=== PATIENT | female | born 1955 | race Caucasian/White ===

== ENCOUNTER → 2023-11-24 14:56 | Outpatient (REF) | payer MEDICARE, SELFPAY ==
[2023-11-24 16:03] LABS: C-Reactive Protein < 5.00 mg/L (0.0-10.00)
== END ==
LOC: REG 14:56
PROVIDERS: ATTENDING PHYSICIAN Orthopaedic Surgery
DX: Z96.651 Presence of right artificial knee joint (principal)
CPT/HCPCS: 36415; 86140

== ENCOUNTER 2023-11-27 06:23 | Inpatient (IN) | payer MEDICARE, SELFPAY ==
--- NOTE | 2023-10-31 09:05 | CM ---
Addendum entered by Cynthia Fang 11/19/23 09:40:
Spoke again patient. She will go directly to outpatient PT and has scheduled an appointment for 11/30.
Addendum entered by Cynthia Fang 11/19/23 08:27:
Spoke again with patient. She is requesting VN services initially as she feels it will be more convenient. Discussed benefits of outpatient PT and she states that she will discuss with her significant other. Patient to follow up with navigator.
Original Note:
Patient is scheduled for a R TK Revision on 11/27/23. Spoke with patient prior to surgery via telephone. Introduced role of Orthopedic Navigator. Patient reports that she lives with her significant other in a two story home. There are two steps to
enter and a flight of steps to the second floor. There is a first floor bedroom and full bath. She currently functions independently. She has a cane and rolling walker. She has never had VN services. PCP is Brionna Be.
Discussed orthopedic program and post surgical plans. Reviewed anticipated length of stay and that goal is for her to return home at discharge. Also reviewed outpatient PT. Patient is in agreement with tentative plan and will go directly to
outpatient PT at [facility]. She will have support from her significant other when she goes home.
Patient will complete online education.
Plan: Orthopedic Navigator will remain available to assist with the care of patient and will reassess discharge needs after surgery.
[2023-11-06 14:11] VITALS: BMI 28.8
[2023-11-06 14:25] LABS: Hematocrit 40.5 % (37.0-47.0); Hemoglobin 13.8 g/dL (12.0-16.0); Mean Corp Hgb Conc. 34.1 g/dL (33.0-37.0); Mean Corpuscular Hgb 28.3 pg (27.0-31.0); Mean Corpuscular Volume 83.2 fL (81.0-99.0); Mean Platelet Volume 9.6 fL (7.4-10.4); Platelet Count 296 10^3/uL (130-400); Red Blood Cell Count 4.87 10^6/uL (4.20-5.40); Red Cell Dist. Width 12.7 % (11.5-14.5); White Blood Cell Count 5.2 10^3/uL (4.8-10.8)
[2023-11-06 14:43] LABS: ALT (SGPT) 23 U/L (0-35); AST (SGOT) 23 U/L (14-36); Alkaline Phosphatase 115 U/L (38-126); Blood Urea Nitrogen 22 mg/dl (7-17); Calcium 9.6 mg/dl (8.4-10.2); Carbon Dioxide 29 mmol/L (22-30); Chloride 105 mmol/L (98-107); Estimated Creatinine Clearance 67 ml/min; Glucose 113 mg/dl (70-99); Potassium 4.4 mmol/L (3.5-5.1); Sodium 139 mmol/L (135-145); Total Bilirubin 0.8 mg/dl (0.2-1.3); Total Protein 6.9 g/dl (6.3-8.2); eGFR > 60.00
[2023-11-06 15:34] LABS: Erythrocyte Sed Rate 17 mm/hour (0-20)
[2023-11-06 15:55] VITALS: BMI 28.8
[2023-11-07 09:18] LABS: Glycohemoglobin (HgbA1c) 5.7 % (4.0-5.6)
[2023-11-27] VITALS (12 sets, daily range): BP systolic 99–147; BP diastolic 45–84; BMI 28.8
--- NOTE | 2023-11-27 11:10 | W.PN.UPDATE ---
Update Note
Progress Note Update
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
- s/p R TKA, 2019, and L TKA, 2018, by Dr Garcia
DVT prophylaxis - ASA, b/l venous foot pumps
Colon polyp
Diverticulosis
Hemorrhoids
Vertigo
Hyperthyroidism, status post partial thyroidectomy
Post-surgical hypothyroidism
Astigmatism
Osteopenia
COVID-19, 05/2021, without residual side effects
Mildly elevated CRP pre-op; repeat CRP 11/24/23 WNL
Prediabetes, A1c 5.7
Remote history of tobacco abuse
[2023-11-27] MEDS: TYLENOL 650 MG PO ×3 (13:28→23:15)
[2023-11-27] MEDS: CELEBREX 200 MG PO (13:28)
[2023-11-27] MEDS: NORMOSOL-R 1000 IV (17:00)
--- NOTE | 2023-11-27 17:06 | OR.RPT ---
Operative Report
Operative Report
Orthopaedic Surgery Operative Note
DATE OF OPERATION: 11/27/2023
PREOPERATIVE DIAGNOSES: Painful right prosthetic knee; instability
POSTOPERATIVE DIAGNOSES: Same
OPERATION PERFORMED:
Revision right total knee arthroplasty, single component, without allograft. Polyethylene articular surface exchange.
SURGEON: Durga Paula MD
ASSISTANTS: Johnna Vasquez PA-C who assisted with patient and limb positioning and retraction
ANESTHESIA: Spinal
COMPLICATIONS: None.
ESTIMATED BLOOD LOSS: 20mL
DRAINS: None
TOURNIQUET TIME: 29 minutes.
IMPLANTS: Caroline NexGen PS articular surface, 14mm
INDICATIONS: The patient presented to my office with persistent right knee pain after undergoing R TKA at an outside hospital in 2018. She had several years of subjective instability, recurrent effusions, and anterior knee pain. Infection workup was
negative. She had exhausted physical therapy and other nonoperative treatments. Findings were concerning for instability. Her tibial cut appear at the level of the fibular head. Operative note was reviewed. We reviewed the natural history of this
problem, as well as the risks, benefits, and alternatives of various treatment options. The patient exhausted all nonoperative treatment options and wished to proceed with revision knee replacement surgery. The patient understood the risks which
included, but were not limited to, bleeding, infection, failure to relieve pain, more pain than preop, damage to blood vessels and nerves, need for reoperation, mechanical failure of the implants, wound healing problems, stiffness, instability,
blood clot, pulmonary embolism, myocardial infarction, pneumonia, arrhythmia, CVA, and . The patient accepted these risks and wished to proceed. All questions were answered, and informed consent was obtained.
PROCEDURE IN DETAIL: The patient was identified in the preoperative holding area. The right knee was identified as the operative site. The patient was taken in the operating room and placed in a supine position on the operating table. Spinal
anesthesia was performed. IV antibiotics and tranexamic acid were administered. A well-padded tourniquet was placed on the proximal thigh. All bony prominences were well padded. The right lower extremity was prepped and draped in the usual sterile
fashion.
We performed a surgical time-out. An interarticular block was performed with 20mL of 1% lidocaine with epinephrine. The limb was exsanguinated with an Esmarch bandage, then the tourniquet was inflated to 250 mmHg. The prior anterior midline scar was
excised. Dissection was carried down to the extensor mechanism. A medial parapatellar arthrotomy was performed. Synovial fluid was yellow without signs of purulence. No signs of nodular synnovitis. Medial and lateral gutters were cleared with care
not to damage extensor mechanism or collateral ligaments. A subperiosteal peel was performed on the medial tibia. I excised scar tissue between the patella tendon and the anterior tibia to enhance exposure. The knee was flexed. The patella was not
everted - it was subluxated laterally.
The femoral and tibia components were inspected. A bone tamp was used to determine the components were well fixed. They appeared well positioned and well rotated. The metal surface of the tibia and femur appeared intact without wear or corrosion.
Decision was made to keep the femoral and tibial components. Revision equipment was available. The polyethylene liner was removed. This showed no signs of mechanical wear of the articular surface. No backside wear.
Trial spacers were inserted. The knee had been symmetrically lax in flexion and extension with the 12mm polyethylene component that was removed. I attempted to trial a 17mm spacer which was too tight in flexion and extension. I trialed the 14 which
had much improved stability in flexion and extension and was balanced medially and laterally.
The knee was copiously irrigated. Any remnant synovium and particles were excised. The final polyethylene spacer was impacted into place and engaged the locking mechanism. No soft tissues as interposed.
The arthrotomy was closed with 0-PDS. Once closed, an interarticular block was performed with1% lidocaine with epi. The deep dermal layer was closed with 2-0 PDS, and the subcuticular skin was closed with 3-0 monocryl. A Dermabond Prineo dressing
was applied to the skin in full flexion. Once this was completely dry, a sterile waterproof dressing was applied.
The patient awoke from anesthesia without any difficulties. The sponge and instrument counts were correct x2 at the end of the case. I was present and participated in the entire case.
Des Paula MD
[2023-11-27] MEDS: ROXICODONE 5 MG PO (17:41)
--- NOTE | 2023-11-27 18:44 | PTCARENOTE ---
pt admitted to room 0 from PACU at 1830. pt oriented to room, call hammond and plan of care. assessment completed as documented. pt verbalized no pain at present time. Right knee w/surgical dressing intact. neurovascular check WNL. ice pack in
place. pt eating her dinner tray at this time.
[2023-11-27] MEDS: ROXICODONE 10 MG PO (19:58)
[2023-11-27] MEDS: BACTROBAN 2% OINTMENT 1 APPLIC NASAL (20:12)
[2023-11-27] MEDS: ASPIRIN 325 MG PO (20:13)
[2023-11-27] MEDS: DECADRON 4 MG PO (20:13)
[2023-11-27] MEDS: CYTOMEL PO (20:21)
[2023-11-27] MEDS: SYNTHROID PO (20:22)
[2023-11-27] MEDS: PEPCID 20 MG PO (21:45)
[2023-11-27] MEDS: DILAUDID 0.5 MG IV (21:46)
[2023-11-27] MEDS: ANCEF 5 IV (21:46)
[2023-11-27] MEDS: MELATONIN 5 MG PO (23:15)
[2023-11-28] MEDS: ROXICODONE 10 MG PO (00:11)
[2023-11-28] MEDS: TYLENOL 650 MG PO ×3 (03:46→12:34)
[2023-11-28 03:47] VITALS: BP 99/63
[2023-11-28] MEDS: ROXICODONE 5 MG PO ×2 (04:34→09:09)
[2023-11-28] MEDS: CYTOMEL 25 MICROGRAM PO (06:07)
[2023-11-28] MEDS: SYNTHROID 125 MCG PO (06:07)
[2023-11-28] MEDS: ANCEF 5 IV (06:07)
[2023-11-28 07:43] VITALS: BP 106/57
--- NOTE | 2023-11-28 09:05 | CM ---
Addendum entered by Cynthia Fang 11/28/23 12:21:
Patient did well with therapy. She has no concerns about going home and has updated her significant other.
Original Note:
Reviewed chart and held rounds with PT, OT and nursing. Patient admitted as planned for R TK Revision. Met with patient at bedside. Confirmed information previously obtained for assessment. Also discussed discharge plans. The plan is for patient to
return home at discharge. She will have support from her when she goes home. Patient will go directly to outpatient PT and will go to [facility]. She has an appointment scheduled for Friday, 11/30.
Patient has a rolling walker and cane.
She will use [facility] pharmacy for discharge prescriptions.
[2023-11-28] MEDS: CELEBREX 200 MG PO (09:07)
[2023-11-28] MEDS: DECADRON 4 MG PO (09:08)
[2023-11-28] MEDS: ASPIRIN 325 MG PO (09:08)
[2023-11-28] MEDS: BACTROBAN 2% OINTMENT 1 APPLIC NASAL (09:12)
[2023-11-28 11:41] LABS: Hepatitis C Antibody Negative (Negative)
--- NOTE | 2023-11-28 11:44 | W.PN.ORTHO ---
Today's Communication / Plan
-
Await PT and OT recs.
D/c later today if remaining clinically stable.
Assessment
.
Distal Motor Intact: Yes
Dressing:
Clean, dry and intact.
Assessment:
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
- s/p R TKA, 2019, and L TKA, 2018, by Dr Garcia
DVT prophylaxis - ASA, b/l venous foot pumps
Colon polyp
Diverticulosis
Hemorrhoids
Vertigo
Hyperthyroidism, status post partial thyroidectomy
Post-surgical hypothyroidism
Astigmatism
Bilateral dry eyes
Osteopenia
COVID-19, 05/2021, without residual side effects
Mildly elevated CRP pre-op; repeat CRP 11/24/23 WNL
Prediabetes, A1c 5.7
Remote history of tobacco abuse
Plan
.
Surgery / Date: R TK Revision w/ Dr Paula 11/27/23
DVT Prophylaxis: Aspirin
Activity:
Out of bed.
PT/OT
Discharge Plan: Home w/ Outpatient PT
Subjective
.
.:
Patient resting comfortably in her chair this AM.
R knee pain well controlled this morning in comparison to yesterday evening.
Denies any new significant complaints.
Eager for potential d/c today.
Vital Signs and Labs
.
Vital Signs and Labs:
Lab Results
11/06/23 13:56
11/06/23 13:56
Temp Pulse Resp BP Pulse Ox
98.1 F 83 17 106/57 95
11/28/23 07:43 11/28/23 07:43 11/28/23 07:43 11/28/23 07:43 11/28/23 07:43
Non-invasive Hgb result: 10.8
Physical Exam
-
HEENT: No pallor, cyanosis, or jaundice. Throat clear.
NECK: Supple. No JVD.
RESPIRATORY: Lungs clear to auscultation.
CVS: S1, S2 normal. RRR.
ABDOMEN: Soft, non-tender. No distension.
EXTREMITIES: Mild post-op R knee edema. Strength equal, no calf pain with palpation/dorsiflexion. Calves soft.
ORANGE PICKING SUPERVISOR: AOx3. No focal deficits. advanced manufacturing technician grossly intact
[2023-11-28 11:49] VITALS: PULSE 82; O2SAT 95
--- NOTE | 2023-11-28 12:20 | W.DS.TRANS ---
DC Summary - Job Placement Counselor
-
Discharge Instructions:
Sleep Apnea Risk Low
Discharge Diagnosis/Procedures Instability of R knee joint s/p R Revision of
TKA w/ Dr Paula 11/27/23
Diet Regular
Activity As tolerated,With Walker
Driving Restrictions Not until seen by your Dr
Bathing Restrictions OK to Shower
Other Services PT
Wound Care Leave dressing on until seen by your surgeon's
office for follow-up in 2 weeks
Instructions:
Stand-Alone Forms: Total Hip/Knee Replacement D/C
Changes to Home Medications: Yes
Discharge Medications:
DC Medications w/original date entered in [employer]
Bifidobacterium infantis 4 mg capsule (Align) 4 mg PO DAILY Gastrointestinal Issue 11/04/23
levothyroxine 125 mcg tablet 125 mcg PO DAILY Thyroid 11/04/23
liothyronine 25 mcg tablet 25 mcg PO DAILY Thyroid 11/04/23
multivitamin 1 tab PO NOON Supplement 11/04/23
mupirocin 2 % topical ointment 1 applic intranasal BID #1 tube 11/06/23
melatonin 5 mg tablet 5 mg PO HS PRN insomnia 11/27/23
ofloxacin 0.3 % eye drops 1 drp BOTH EYES DAILY Eye Condition 11/27/23
acetaminophen 500 mg tablet (Tylenol Extra Strength) 1,000 mg PO Q6H #60 tabs 11/28/23
aspirin 325 mg tablet 325 mg PO DAILY #30 tabs 11/28/23
cefadroxil 500 mg capsule 500 mg PO BID #14 caps 11/28/23
celecoxib 200 mg capsule 200 mg PO DAILY #30 caps 11/28/23
dexamethasone 4 mg tablet 4 mg PO BID #5 tabs 11/28/23
docusate sodium 100 mg capsule 100 mg PO BID #30 caps 11/28/23
erythromycin 5 mg/gram (0.5 %) eye ointment 1 applic ophthalmic (eye) HS #3.5 grams 11/28/23
famotidine 20 mg tablet 20 mg PO HS #30 tabs 11/28/23
ondansetron HCl 4 mg tablet 4 mg PO Q6H PRN nausea and vomiting #30 tabs 11/28/23
oxycodone 5 mg tablet 5 - 10 mg PO Q4H PRN moderate-severe pain #30 tabs 11/28/23
sennosides 8.6 mg tablet (Senna Lax) 17.2 mg PO BID #30 tabs 11/28/23
Home Medication Changes
acetaminophen 500 mg tablet (Tylenol Extra Strength) 1,000 mg PO Q6H #60 tabs 11/28/23
aspirin 325 mg tablet 325 mg PO DAILY #30 tabs 11/28/23
cefadroxil 500 mg capsule 500 mg PO BID #14 caps 11/28/23
celecoxib 200 mg capsule 200 mg PO DAILY #30 caps 11/28/23
dexamethasone 4 mg tablet 4 mg PO BID #5 tabs 11/28/23
docusate sodium 100 mg capsule 100 mg PO BID #30 caps 11/28/23
famotidine 20 mg tablet 20 mg PO HS #30 tabs 11/28/23
ondansetron HCl 4 mg tablet 4 mg PO Q6H PRN nausea and vomiting #30 tabs 11/28/23
oxycodone 5 mg tablet 5 - 10 mg PO Q4H PRN moderate-severe pain #30 tabs 11/28/23
sennosides 8.6 mg tablet (Senna Lax) 17.2 mg PO BID #30 tabs 11/28/23
Pending Results: No
== END 2023-11-28 13:15 | disposition home or self-care (01) | DRG 489 ==
LOC: 2 SOUTH 06:23
PROVIDERS: ADMITTING PHYSICIAN Orthopaedic Surgery; FAMILY PHYSICIAN Nurse Practitioner; REFERRING PHYSICIAN Physician Assistant
PROC: 0SPC09Z Removal of Liner from Right Knee Joint, Open Approach (ICD-10-PCS; 2023-11-27)
PROC: 0HBKXZZ Excision of Right Lower Leg Skin, External Approach (ICD-10-PCS; 2023-11-27)
PROC: 0SUV09Z Supplement Right Knee Joint, Tibial Surface with Liner, Open Approach (ICD-10-PCS; 2023-11-27)
DX: T84.022A Instability of internal right knee prosthesis, initial encounter (principal); M85.80 Other specified disorders of bone density and structure, unspecified site; E89.0 Postprocedural hypothyroidism; L90.5 Scar conditions and fibrosis of skin; R73.03 Prediabetes; Y83.8 Other surgical procedures as the cause of abnormal reaction of the patient, or of later complication, without mention of misadventure at the time of the procedure; Y79.2 Prosthetic and other implants, materials and accessory orthopedic devices associated with adverse incidents; Z96.653 Presence of artificial knee joint, bilateral; Z86.010 Personal history of colon polyps; Z87.19 Personal history of other diseases of the digestive system; Z86.16 Personal history of COVID-19; Z87.891 Personal history of nicotine dependence
CPT/HCPCS: 36415; 73560; 80053; 83036; 85027; 85652; 86140; 86803; 86850; 86900; 86901; 87070; 93005; 97110; 97116; 97162; 97166; 97535; C1776